=== PATIENT | female | born 1945 | race Caucasian/White ===

== ENCOUNTER → 2016-08-29 | Outpatient (REF) | payer MEDICARE, OTHER | LOC: M LAB REF 16:49 | PROVIDERS: ATTEND Nurse Practitioner Adult Health | DX: E03.9 Hypothyroidism, unspecified (principal) ==

== ENCOUNTER → 2017-03-08 | Outpatient (CLI) | payer MEDICARE, OTHER ==
--- NOTE | 2017-03-12 10:20 | DEXA ---
AP SPINE L1 - L4 1.005 -1.5 0.1 LT FEMUR TOTAL 0.898 -0.9 0.6 RT FEMUR TOTAL 0.916 -0.7 0.8 TOTAL BODY TOTAL OTHER DUAL FEMUR FRAX* ASSESSMENT Risk factors: Not performed. 10 year probability of fracture Major osteoporotic fracture % Hip fracture % COMMENTS: Normal bone densitometry of the right hip. There is low bone density of the spine. There is low bone density of the left hip based on femoral neck T score -1.1. There is degenerative change in the spine which may artificially elevate the BMD. The increased density of the spine does represent a significant change since . The decreased density of the left hip does represent a significant change since 01/19/2012. The decreased density of the right hip does represent a significant change. The density of the spine has increased 4.0% since the initial exam on 2009. The spine density has increased 4.3% since the most recent exam on 01/19/2012. The density of the left hip has decreased 7.8% since the initial exam on 2009. The density of the left hip has decreased 5.9% since the most recent exam on . The density of the right hip has decreased 6.0% since the initial exam on 2009. The density of the right hip has decreased 4.5% since the most recent exam on . FOLLOW-UP: Recommendation for the next bone density exam: 2 years. MOMO
== END ==
LOC: M WHC 10:58
PROVIDERS: ATTEND Nurse Practitioner Adult Health
DX: M85.89 Other specified disorders of bone density and structure, multiple sites (principal)

== ENCOUNTER 2019-01-15 07:48 | Day surgery (SDC) | payer MEDICARE, OTHER ==
[~2019-01-15] VITALS: Ht 148.6 cm; Wt 72.6 kg
[~2019-01-15 07:48] MED LIST: ASPI81TA85 PO; CALCCAP4 PO; CENT1TAB PO; CIDA500T2 PO; CLOB0.0526 TOP; NS 1,000 ML IV ONE; OMEGCAP4 PO; PURE500C5 PO; SIMV40TA2; TRIA1OI TOP; [UNRECOGNIZED DRUG - CODE] IM
[2019-01-15] MEDS ORDERED: PROPOFOL 200 MG/20 ML VIAL As Ordered ONE ×2 (08:32→09:10)
--- NOTE | 2019-01-15 09:03 | ROOR ---
Patient Name: Samira Hager Procedure Date: 01/15/2019 8:28 AM Date of : 1945 Age: 73 Room: [facility] Gender: Female Note Status: Finalized Procedure: Total Colonoscopy to Cecum + Cold Snare Polypectomy + Biopsy Polypectomy Indications: Positive Cologuard test Providers: Chun Arias MD Referring MD: Breann Martinez NP Requesting Provider: Medicines: Monitored Anesthesia Care Complications: No immediate complications. Procedure: Pre-Anesthesia Assessment: - The heart rate, respiratory rate, oxygen saturations, blood pressure, adequacy of pulmonary ventilation, and response to care were monitored throughout the procedure. The Colonoscope was introduced through the anus and advanced to the cecum, identified by appendiceal orifice and ileocecal valve. The colonoscopy was performed without difficulty. The patient tolerated the procedure well. The quality of the bowel preparation was excellent. Findings: The perianal and digital rectal examinations were normal. Non-bleeding internal hemorrhoids were found during retroflexion. The hemorrhoids were small and Grade I (internal hemorrhoids that do not prolapse). Scattered small-mouthed diverticula were found in the recto-sigmoid colon, sigmoid colon and descending colon. A localized area of mildly congested mucosa was found in the cecum. Biopsies were taken with a cold forceps for histology. Multiple sessile polyps were found in the ascending colon. The polyps were diminutive in size. These polyps were removed with a cold snare. Resection and retrieval were complete. Multiple sessile polyps were found at 50 cm proximal to the anus. The polyps were small in size. These polyps were removed with a cold biopsy forceps. Resection and retrieval were complete. The exam was otherwise without abnormality on direct and retroflexion views. Impression: - Non-bleeding internal hemorrhoids. - Diverticulosis in the recto-sigmoid colon, in the sigmoid colon and in the descending colon. - Congested mucosa in the cecum. Biopsied. - Multiple diminutive polyps in the ascending colon, removed with a cold snare. Resected and retrieved. - Multiple small polyps at 50 cm proximal to the anus, removed with a cold biopsy forceps. Resected and retrieved. - The examination was otherwise normal on direct and retroflexion views. - The exam was otherwise normal to the cecum. Recommendation: - Patient has a contact number available for emergencies. The signs and symptoms of potential delayed complications were discussed with the patient. Return to normal activities tomorrow. Written discharge instructions were provided to the patient. - Discharge patient to home. - Continue present medications. - Await pathology results. - Telephone GI clinic for pathology results in 1 week. - Repeat colonoscopy for symptoms only. - Return to referring physician. - The findings and recommendations were discussed with the patient's family. Chun Arias MD Chun Arias MD 01/15/2019 9:02:31 AM Electronically signed by Chun Arias MD Number of Addenda: 0 Note Initiated On: 01/15/2019 8:28 AM Estimated Blood Loss: Estimated blood loss: none.
[2019-01-15 09:15] VITALS: BP 148/71
== END 2019-01-15 09:23 | disposition home or self-care (01) ==
LOC: M OPP 07:48
PROVIDERS: ATTEND Internal Medicine Gastroenterology
DX: K64.0 First degree hemorrhoids (principal); K63.89 Other specified diseases of intestine; D12.2 Benign neoplasm of ascending colon; K57.30 Diverticulosis of large intestine without perforation or abscess without bleeding; R19.5 Other fecal abnormalities; Z79.82 Long term (current) use of aspirin; Z79.899 Other long term (current) drug therapy

== ENCOUNTER → 2019-05-06 | Outpatient (CLI) | payer MEDICARE, OTHER ==
[~2019-05-06] MED LIST changes: -NS 1,000 ML IV ONE
--- NOTE | 2019-05-06 13:30 | REP ---
REASON FOR EXAM: Trauma. There are no priors for comparison. There is a calcification seen superior to the greater humeral tuberosity. There is a subtle lucency seen involving the greater humeral tuberosity on one view only. The glenohumeral relationship is within normal limits. IMPRESSION: 1. 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 2. Evidence of a tiny hairline fracture of the humeral head superolaterally as described above. Electronically Signed by Jamshid Calle DO 05/06/2019 02:38 P
--- NOTE | 2019-05-06 14:21 | REP ---
REASON: Pain after trauma. FINDINGS: No acute fracture or destructive osseous lesion. See the shoulder report for description of a possible humeral head fracture. Electronically Signed by Jamshid Calle DO 05/06/2019 02:38 P
== END ==
LOC: M WUC 10:55
PROVIDERS: ATTEND Physician Assistant
DX: M25.711 Osteophyte, right shoulder (principal)

== ENCOUNTER → 2020-07-12 | Outpatient (CLI) | payer SELFPAY ==
[~2020-07-12] MED LIST changes: -ASPI81TA85 PO; +ASPI81TA86 PO; -SIMV40TA2; +SIMV40TA20
== END ==
LOC: M LABSMTC 13:02
PROVIDERS: ATTEND Pediatrics
DX: Z20.828 Contact with and (suspected) exposure to other viral communicable diseases (principal)

== ENCOUNTER → 2021-11-07 | Outpatient (CLI) | payer MEDICARE, OTHER | LOC: M WUC 12:50 | PROVIDERS: ATTEND Nurse Practitioner Adult Health | DX: R06.02 Shortness of breath (principal) ==

== ENCOUNTER → 2021-12-29 | Outpatient (CLI) | payer MEDICARE, OTHER | LOC: M WHC 09:43 | PROVIDERS: ATTEND Nurse Practitioner Adult Health | DX: M81.0 Age-related osteoporosis without current pathological fracture (principal) ==

== ENCOUNTER → 2022-07-03 | Outpatient (CLI) | payer MEDICARE, OTHER ==
[~2022-07-03] MED LIST changes: +ASCO500C3 PO; -PURE500C5 PO
== END ==
LOC: M PLALAB 09:14
PROVIDERS: ATTEND Nurse Practitioner Adult Health
DX: R05.9 Cough, unspecified (principal)

== ENCOUNTER → 2022-09-04 | Outpatient (CLI) | payer MEDICARE, OTHER | LOC: M CARPUL 10:07 | PROVIDERS: ATTEND Nurse Practitioner Adult Health | DX: R01.1 Cardiac murmur, unspecified (principal) ==

== ENCOUNTER → 2024-05-28 | Outpatient (CLI) | payer MEDICARE, OTHER | LOC: M WUC 11:18 | PROVIDERS: ATTEND Nurse Practitioner Adult Health | DX: R05.9 Cough, unspecified (principal) ==

== ENCOUNTER 2024-08-13 09:51 | Day surgery (SDC) | payer MEDICARE, OTHER ==
[~2024-08-13] VITALS: Ht 149.9 cm; Wt 66.7 kg
[2024-08-13] MEDS ORDERED: LIDOCAINE 2% 100MG/5ML SDV (FOR ANES.) As Ordered ONE (11:16)
[2024-08-13] MEDS ORDERED: propofoL 200 MG/20 ML VIAL As Ordered ONE (11:39)
[2024-08-13 11:40] VITALS: TEMP 98.2
[2024-08-13 12:04] VITALS: BP 171/83; O2SAT 100
== END 2024-08-13 12:25 | disposition home or self-care (01) ==
LOC: M OPP 09:51
PROVIDERS: ATTEND Internal Medicine Gastroenterology
DX: K57.30 Diverticulosis of large intestine without perforation or abscess without bleeding (principal); K64.0 First degree hemorrhoids; Z86.0100 Personal history of colon polyps, unspecified; Z95.0 Presence of cardiac pacemaker; Z88.1 Allergy status to other antibiotic agents; Z91.018 Allergy to other foods; Z88.8 Allergy status to other drugs, medicaments and biological substances; Z79.899 Other long term (current) drug therapy

== ENCOUNTER → 2025-07-28 | Outpatient (CLI) | payer MEDICARE, OTHER | LOC: M WUC 10:01 | PROVIDERS: ATTEND Physician Assistant | DX: M25.552 Pain in left hip (principal) ==